=== PATIENT | male | born 1980 | race Hispanic/Latino ===

== ENCOUNTER 2021-05-26 16:01 | Emergency (ER) | payer OTHER ==
[~2021-05-26] VITALS: Ht 165.1 cm; Wt 87.1 kg
[2021-05-26 16:03] VITALS: BP 121/85
[2021-05-26] MEDS ORDERED: KETOROLAC 30MG VIAL (30MG/ML) IM ONE (16:30)
[2021-05-26] MEDS ORDERED: L.E.T. GEL 3ML SYG TP ONE (16:30)
[2021-05-26] MEDS ORDERED: TETANUS/DIPHTHERIA TOXOID [ADULT] 0.5 ML VIAL IM ONE (16:30)
[2021-05-26] MEDS ORDERED: LIDOCAINE HCL 400MG/20ML VIAL ONE (16:53)
[2021-05-26] MEDS ORDERED: LIDOCAINE HCL-MPF 1% 2ML VIAL ONE (16:55)
[2021-05-26] MEDS ORDERED: LIDOCAINE HCL-MPF 1% 2ML VIAL IV SCH (17:00)
[2021-05-26] MEDS ORDERED: CEPH500B PO (17:45)
[2021-05-26] MEDS ORDERED: IBUP-2070 PO (17:45)
== END 2021-05-26 18:02 | disposition home or self-care (01) ==
LOC: EDH 16:01
DX: S51.822A Laceration with foreign body of left forearm, initial encounter (principal); Z79.1 Long term (current) use of non-steroidal anti-inflammatories (NSAID); X58.XXXA Exposure to other specified factors, initial encounter; Y93.89 Activity, other specified; Y92.89 Other specified places as the place of occurrence of the external cause; Y99.8 Other external cause status
CPT/HCPCS: 12002; 73110; 90471; 90714; 96372; 99284; J1885; J3490 ×2

== ENCOUNTER 2021-06-03 09:17 | Emergency (ER) | payer OTHER ==
[~2021-06-03] VITALS: Ht 167.6 cm; Wt 87.1 kg
[~2021-06-03 09:17] MED LIST: CEPH500B PO; IBUP-2070 PO
[2021-06-03 09:18] VITALS: BP 122/76
[2021-06-03] MEDS ORDERED: OCTYL 2-CYANOACRYLATE 1 EACH TP SCH (09:30)
== END 2021-06-03 11:58 | disposition home or self-care (01) ==
LOC: EDH 09:17
DX: S61.511A Laceration without foreign body of right wrist, initial encounter (principal); Z79.1 Long term (current) use of non-steroidal anti-inflammatories (NSAID); X58.XXXA Exposure to other specified factors, initial encounter; Y93.89 Activity, other specified; Y92.89 Other specified places as the place of occurrence of the external cause; Y99.8 Other external cause status
CPT/HCPCS: 12001; 99282